=== PATIENT | male | born 1945 | race Caucasian/White ===

== ENCOUNTER → 2017-12-08 14:39 | Outpatient (BNVA) | payer MEDICARE, MEDICAID, SELFPAY | PROVIDERS: PCP Nurse Practitioner; Visit Provider Psychiatry & Neurology Neurology | DX: G20 Parkinson's disease (principal); I95.9 Hypotension, unspecified; G47.9 Sleep disorder, unspecified | CPT/HCPCS: 99214 ==

== ENCOUNTER → 2018-01-24 13:01 | Outpatient (BNVA) | payer MEDICARE, SELFPAY, MEDICAID | PROVIDERS: PCP Nurse Practitioner; Visit Provider Psychiatry & Neurology Neurology | DX: G20 Parkinson's disease (principal); I95.9 Hypotension, unspecified | CPT/HCPCS: 99213 ==

== ENCOUNTER → 2018-04-13 14:38 | Outpatient (BNVA) | payer MEDICARE, MEDICAID, SELFPAY | PROVIDERS: PCP Nurse Practitioner; Visit Provider Psychiatry & Neurology Neurology | DX: G20 Parkinson's disease (principal); R56.9 Unspecified convulsions | CPT/HCPCS: 99214 ==

== ENCOUNTER 2018-04-28 00:12 | Outpatient (CLI) | payer MEDICARE, MEDICAID, SELFPAY ==
--- NOTE | 2018-04-28 13:56 | DI.CT_ITS ---
SYMPTOMS/DIAGNOSIS: UNSPECIFIED CONVULSIONS, R56.9, ? SEIZURE CT BRAIN, NONCONTRAST: Comparison is 09/04/17. The sibley-white matter differentiation is well maintained. The ventricles are intact. The basilar cisterns are patent. The ventricles and sulci are consistent with the patient's age. No acute intracranial hemorrhage, mass, midline shift or mass effect is identified. The visualized paranasal sinuses are clear. The calvarium is intact. IMPRESSION: No acute intracranial process.
== END 2018-04-28 00:32 ==
PROVIDERS: PCP Family Medicine; Visit Provider Psychiatry & Neurology Neurology
DX: R56.9 Unspecified convulsions (principal)
CPT/HCPCS: 70450

== ENCOUNTER 2018-04-28 01:24 | Outpatient (CLI) | payer MEDICARE, MEDICAID, SELFPAY ==
--- NOTE | 2018-05-01 12:04 | PDOC.EEG_ITS ---
EEG: [facility] Department of Neurology EEG REPORT Date of Recordin04/28/18 Interpreting Physician: Dr. Marychuy Carlos PCP/Referring Provider: Dr. See Reason for study: Ms. Ulloa is a 72 year-old man with developmental delay, Parkinsons, and childhood epilepsy who recently had 2 spells concerning for seizure. Current Medications: tamsulosin 2 tab PO DAILY #180 cap 03/25/15 polyethylene glycol 3350 [Miralax] 17 g PO DAILY #255 gm 12/09/16 multivitamin with iron [One Daily Multivitamin] 1 ea PO DAILY 07/05/17 Custom articulating AFO for R ankle 1 unit NOT APPLICABLE DAILY #1 12/20/17 amantadine HCl 100 mg tablet 100 mg PO BID #180 tab 01/24/18 carbidopa 25 mg-levodopa 100 mg tablet 2 tab PO TID #540 tab-cap 01/24/18 finasteride 5 mg tablet 5 mg PO DAILY #90 tab 01/24/18 meloxicam 15 mg tablet 15 mg PO DAILY #30 tab 03/02/18 METHODS: A 21 channel digitized electroencephalogram was performed in the [facility]. The 10/20 international system of electrode placement was used and bipolar and referential electrode montages were recorded. In addition to EEG the patient was monitored for EKG and lateral/vertical eye movements. Activation procedures of photic stimulation and hyperventilation were performed if applicable. Video was used during activation procedures and during events where applicable. The duration of the recording was 30 minutes. DESCRIPTION OF EEG: The patient was noted to be awake, drowsy, and asleep during the recording. During maximal wakefulness a 7-Hz posterior background rhythm was present which was well-modulated, symmetrical, reactive to eye opening, and of moderate voltage. With eye opening the background activity changed to a low voltage mixture of alpha, beta, and occasional theta range frequencies. Faster frequencies were present in the bilateral anterior head regions. There was a normal anterior-posterior voltage gradient. During drowsiness, there was attenuation of the posterior dominant background rhythm and vertex waves. Stage II sleep was present with symmetrical sleep spindles, K-complexes, and vertex waves. There was a single, moderate-amplitude, right temporal (F8/T4) sharp wave during sleep at 15:53:17, that was not clearly epileptiform. Activating Procedures: Photic stimulation was performed which produced no posterior driving response. Hyperventilation was not performed. EKG: EKG revealed bradycardia throughout. INTERPRETATION: This EEG is abnormal due to slowing of the posterior dominant rhythm. PRIOR EEG: none CLINICAL CORRELATION: The background slowing is suggestive of a mild-moderate diffuse cerebral encephalopathy, likely as a part of his known cognitive delay. No focal regions of cerebral dysfunction or epileptiform activity was present. Clinical cor relation is advised. Marychuy Carlos MD
== END 2018-04-28 01:44 ==
PROVIDERS: PCP Family Medicine; Visit Provider Psychiatry & Neurology Neurology
DX: R56.9 Unspecified convulsions (principal); R68.89 Other general symptoms and signs
CPT/HCPCS: 95819; 95816

== ENCOUNTER → 2018-05-01 12:54 | Outpatient (BNVA) | payer MEDICARE, MEDICAID, SELFPAY | PROVIDERS: PCP Family Medicine; Visit Provider Psychiatry & Neurology Neurology | DX: R69 Illness, unspecified (principal) ==